=== PATIENT | female | born 1985 | race Caucasian/White ===

== ENCOUNTER 2017-04-16 17:18 | Emergency (ER) | payer BC ==
[~2017-04-16 17:18] MED LIST: LEVSINTAB PO; PR25R PR
== END 2017-04-16 18:07 | disposition home or self-care (01) ==
LOC: ER 17:18
DX: K08.89 Other specified disorders of teeth and supporting structures (principal); F17.200 Nicotine dependence, unspecified, uncomplicated; Z88.6 Allergy status to analgesic agent; Z79.899 Other long term (current) drug therapy
CPT/HCPCS: 99282